=== PATIENT | female | born 1975 | race Caucasian/White ===

== ENCOUNTER → 2018-03-08 | Outpatient (CLI) | payer OTHER | END | disposition home or self-care (01) | LOC: C.PAPS 17:46 | PROVIDERS: ATTEND Obstetrics & Gynecology | DX: Z12.4 Encounter for screening for malignant neoplasm of cervix (principal) ==

== ENCOUNTER → 2018-03-08 | Outpatient (CLI) | payer OTHER ==
[2018-03-08 16:35] LABS: BASO % 0.2 %; BASO ABS # 0.02 K/uL (0-0.2); EOS % 1.1 %; EOS ABS # 0.09 K/uL (0-0.5); HEMATOCRIT 40.3 % (37-47); HEMOGLOBIN 13.5 g/dL (12.0-16.0); IG# 0.02 K/uL (0.00-0.02); LYMPH % 23.8 %; MEAN CORPUSCULAR HEMOGLOBIN 32.1 pg (25-34); MEAN CORPUSCULAR HGB CONC 33.5 g/dl (32-36); MEAN PLATELET VOLUME 11.8 fL (7.4-10.4); MONO % 6.9 %; MONO ABS # 0.58 K/uL (0.11-0.59); NEUT % 67.8 %; NEUT ABS # 5.69 K/uL (1.4-6.5); PLATELET COUNT 231 K/uL (130-400); RED CELL DISTRIBUTION WIDTH CV 13.1 % (11.5-14.5); RED CELL DISTRIBUTION WIDTH SD 45.6 fL (36.4-46.3)
== END | disposition home or self-care (01) ==
LOC: C.LAB1850 15:02
PROVIDERS: ATTEND Obstetrics & Gynecology
DX: Z00.00 Encounter for general adult medical examination without abnormal findings (principal); N92.1 Excessive and frequent menstruation with irregular cycle